=== PATIENT | male | born 1980 | race Caucasian/White ===

== ENCOUNTER 2018-09-11 10:15 | Emergency (ER) | payer OTHER ==
--- NOTE | 2018-09-11 10:59 | EDM.PDOC ---
ED HPI GENERAL MEDICAL PROBLEM - General Chief Complaint: Lower Extremity Injury/Pain Stated Complaint: GOUT ATTACK Time Seen by Provider: 09/11/18 10:43 Source of Information: Reports: Patient History Limitations: Reports: No Limitations - History of Present Illness INITIAL COMMENTS - FREE TEXT/NARRATIVE: 38 yo male presents to ER with pain in right great toe. Onset was this morning. Has past hx of gout with last flare 6 months ago. no injury to toe. generally healthy. Right Toe-Hailux Pain Score (Numeric/FACES): 8 - Related Data Allergies Allergy/AdvReac Type Severity Reaction Status Date / Time No Known Allergies Allergy Verified 09/11/18 10:31 Home Meds: Home Meds NK [No Known Home Meds] 09/11/18 [History] Past Medical History Musculoskeletal History: Reports: Fracture, Gout Social & Family History - Tobacco Use Smoking Status *Q: Never Smoker - Caffeine Use Caffeine Use: Reports: Coffee - Recreational Drug Use Recreational Drug Use: No Review of Systems - Review of Systems Review Of Systems: See Below Constitutional: Denies: Chills, Fever Respiratory: Denies: Shortness of Breath, Wheezing Cardiovascular: Denies: Chest Pain Musculoskeletal: Reports: Joint Pain Skin: Denies: Rash ED EXAM, GENERAL - Physical Exam Exam: See Below Exam Limited By: No Limitations General Appearance: Alert, WD/WN, No Apparent Distress Head: Atraumatic, Normocephalic Respiratory/Chest: No Respiratory Distress, Lungs Clear, Normal Breath Sounds. No: Crackles, Rhonchi, Wheezing Cardiovascular: Normal Peripheral Pulses, Regular Rate, Rhythm, No Murmur Peripheral Pulses: 2+: Posterior Tibial (L), Posterior Tibial (R), Dorsalis Pedis (L), Dorsalis Pedis (R) Extremities: Joint Swelling (mild edema with moderate tenderness at great toe MP joint) Course - Vital Signs Last Recorded V/S: Last Vital Signs Temp 36.1 C 09/11/18 10:27 Pulse 59 L 09/11/18 10:27 Resp 16 09/11/18 10:27 BP 132/85 09/11/18 10:27 Pulse Ox 99 09/11/18 10:27 Departure - Departure Time of Disposition: 10:57 Disposition: Home, Self-Care 01 Condition: Good Clinical Impression: Gout attack Qualifiers: Gout site: foot Gout etiology: unspecified cause Laterality: right Qualified Code(s): M10.9 - Gout, unspecified - Discharge Information *PRESCRIPTION DRUG MONITORING PROGRAM REVIEWED*: Not Applicable *COPY OF PRESCRIPTION DRUG MONITORING REPORT IN PATIENT JOSE: Not Applicable Instructions: Gout, [id number] Referrals: PCP,None [Primary Care Provider] - Forms: ED Department Discharge Additional Instructions: prednisone 20 mg - 2 tablets for 4 days then decrease to 1 tablet for 3 days increase fluid intake with goal of 2 liters per day
== END 2018-09-11 11:12 | disposition home or self-care (01) ==
LOC: JP.ED 10:15
DX: M10.9 Gout, unspecified (principal)
CPT/HCPCS: 99283